=== PATIENT | male | born 1985 | race Caucasian/White ===

== ENCOUNTER 2020-07-22 05:44 | Day surgery (SDC) | payer OTHER ==
[~2020-07-22 05:44] MED LIST: CEFAZOLIN 2 GM/D5W RTU 2 GM/50 ML RTUPB IV ONE; CEFAZOLIN 2 GM/D5W RTU 2 GM/50 ML RTUPB IV PRN
[2020-07-22] MEDS ORDERED: LIDOCAINE 2% INJ-PF (100 MG/5 ML) SYRINGE ONE (06:28)
[2020-07-22] MEDS ORDERED: FENTANYL CITRATE INJ/PF 100 MCG/2 ML AMPUL ONE (06:29)
[2020-07-22] MEDS ORDERED: ONDANSETRON HCL INJ/PF 4 MG/2 ML SDV ONE (06:29)
[2020-07-22] MEDS ORDERED: MIDAZOLAM 2 MG/2 ML INJ ONE ×2 (06:29→06:36)
[2020-07-22] MEDS ORDERED: DEXAMETHASONE SOD PHOSPHATE INJ 4 MG/1 ML VIAL ONE (06:29)
[2020-07-22] MEDS ORDERED: PROPOFOL INJ 200 MG/20 ML VIAL IV ONE (06:30)
[2020-07-22] MEDS ORDERED: KETOROLAC TROMETHAMINE 60 MG/2 ML SDV ONE (06:31)
[2020-07-22] MEDS ORDERED: BUPIVACAINE HCL 0.5 % INJ/PF 30 ML SDV ONE (07:08)
[2020-07-22] MEDS ORDERED: LIDOCAINE 1% INJ-PF (10 MG/ML) 30 ML SDV ONE (07:09)
[2020-07-22] MEDS ORDERED: FENTANYL CITRATE INJ/PF 100 MCG/2 ML AMPUL IV PRN ×3 (08:48)
[2020-07-22] MEDS ORDERED: MEPERIDINE HCL/PF INJ 25 MG/1 ML DISP.SYRIN IV PRN (08:48)
[2020-07-22] MEDS ORDERED: DIPHENHYDRAMINE HCL 50 MG/ML VIAL IV PRN (08:48)
[2020-07-22] MEDS ORDERED: PROMETHAZINE HCL INJ 25 MG/1 ML VIAL IV PRN ×2 (08:48)
--- NOTE | 2020-07-22 09:02 | Operative Report ---
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 Description of procedure: Following the induction of a general anesthetic and administration of 2 g of Ancef, the patient was positioned supine on the operating room table. All bony prominences were padded. A tourniquet was placed proximally on the right arm but not inflated. The right upper extremity was sterilely prepped with ChloraPrep and draped in standard fashion. The arm was exsanguinated and the tourniquet inflated to 250 mmHg. A longitudinal incision was made on the dorsum of the right thumb metacarpal. A sharp incision was made through skin with blunt dissection to the subcutaneous tissue. Care was taken to protect all suprafascial branching nerves. The EPB and EPL tendons were mobilized and retracted. The periosteum over the metacarpal shaft was incised and elevated. The fracture was found to have already healed in malposition. The fracture was osteotomized with a combination of a 15 blade, osteotome, and rongeur which were used to re-create the original fracture lines and reduce the fracture. The fracture was then held reduced and a 7 hole T plate from the Doe 2.3 mm handset was placed. 3 screws were placed in the proximal fragment at the base. 3 screws were placed in the shaft. A combination of locking and nonlocking screws were used. Image intensification was brought in which confirmed anatomic reduction of the fracture and correct placement of implants. The wound was then copiously irrigated. The periosteum was closed over the plate using 3-0 Vicryl suture. The subcutaneous tissue was closed with 3-0 Vicryl as well. The skin was reapproximated with a 3-0 subcuticular Monocryl. Steri-Strips were applied. Half percent Marcaine without epinephrine was then injected for postoperative analgesia. A bulky sterile dressing was then applied. The patient tolerated procedure well without complications and was awakened and brought to recovery room in stable condition. Preoperatively the patient had been instructed in a home exercise program for mobilization of the thumb with particular care to fully mobilize the metacarpal phalangeal joint.
[2020-07-22] MEDS: FENTANYL CITRATE INJ/PF 100 MCG/2 ML AMPUL ONE ×2 (09:11→09:16)
[2020-07-22] MEDS ORDERED: OXYCODONE-ACETAMINOPHEN 5-325 MG TABLET PO PRN (09:14)
[2020-07-22] MEDS ORDERED: ONDANSETRON HCL INJ/PF 4 MG/2 ML SDV IV PRN (09:15)
[2020-07-22] MEDS ORDERED: OXYCODONE-ACETAMINOPHEN 5-325 MG TABLET ONE (09:47)
[2020-07-22 11:11] VITALS: BP 117/78
--- NOTE | 2020-07-22 12:11 | RADIOLOGY REPORT (SQ) ---
EXAM DESCRIPTION: NO CHG FLUORO; FINGER RIGHT IMAGES COMPLETED DATE/TIME: 07/22/2020 9:37 am REASON FOR STUDY: ORIF OF RIGHT THUMB COMPARISON: None. FLUOROSCOPY TIME: 5 seconds 3 Images saved to PACS LIMITATIONS: None. PROCEDURE: ORIF right thyroid FINDINGS: Images from fluoro document placement of a compression plate on the 1st metacarpal with mu ltiple screws. IMPRESSION: ORIF. Refer to operative note for further information. COMMENT: PQRS 6045F: Fluoroscopy time of the procedure is documented in the report. TECHNICAL DOCUMENTATION: JOB ID: [id number] 2010 [employer]- All Rights Reserved Reading location - IP/workstation name: [email or web address]
--- NOTE | 2020-07-22 12:11 | RADIOLOGY REPORT (SQ) ---
EXAM DESCRIPTION: NO CHG FLUORO; FINGER RIGHT IMAGES COMPLETED DATE/TIME: 07/22/2020 9:37 am REASON FOR STUDY: ORIF OF RIGHT THUMB COMPARISON: None. FLUOROSCOPY TIME: 5 seconds 3 Images saved to PACS LIMITATIONS: None. PROCEDURE: ORIF right thyroid FINDINGS: Images from fluoro document placement of a compression plate on the 1st metacarpal with mu ltiple screws. IMPRESSION: ORIF. Refer to operative note for further information. COMMENT: PQRS 6045F: Fluoroscopy time of the procedure is documented in the report. TECHNICAL DOCUMENTATION: JOB ID: [id number] 2010 [employer]- All Rights Reserved Reading location - IP/workstation name: [email or web address]
== END 2020-07-22 10:50 | disposition home or self-care (01) ==
LOC: OROUT 05:44
PROVIDERS: ATTEND Orthopaedic Surgery
DX: S62.231A Other displaced fracture of base of first metacarpal bone, right hand, initial encounter for closed fracture (principal); W19.XXXA Unspecified fall, initial encounter; Y92.69 Other specified industrial and construction area as the place of occurrence of the external cause; Y99.1 Military activity; Z03.818 Encounter for observation for suspected exposure to other biological agents ruled out
CPT/HCPCS: 87635; 73140; 01830; 26665; C1713 ×5; J2250; J3490; J1100; J1885; J3010; J2001; J2405; J2704; J0690; C9803